=== PATIENT | female | born 1965 | race Caucasian/White ===

== ENCOUNTER 2017-05-29 20:31 | Emergency (ER) | payer OTHER ==
[~2017-05-29] VITALS: Ht 157.5 cm; Wt 99.1 kg
[2017-05-29 20:42] VITALS: TEMP 36.8; Ht 157.5 cm; Wt 99.1 kg
[2017-05-29] MEDS ORDERED: ONDANSETRON INJ 2 MG/ML 2 ML VIAL IV STA (20:56)
[2017-05-29] MEDS ORDERED: MoRPHine SULFATE 10 MG/ML CARP/VIAL IV STA (20:56)
[2017-05-29] MEDS ORDERED: GI COCKTAIL PO STA (20:56)
[2017-05-29] MEDS ORDERED: FAMOTIDINE 20 MG TAB PO ONE (21:00)
--- NOTE | 2017-05-29 21:05 | EMERGENCY ROOM VISIT NOTE ---
History Report prepared by Sylwia: Mei Alaniz Under the Supervision of: Dr. Oseas Paris M.D. 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 She rates her pain as a 10/10 in severity. Positive vomiting, hematemesis. Negative pain or swelling in her legs. Her last BM was this morning and normal. She reports she was treated for her pain at a hospital in [place], [place], recently, and was diagnosed with H- Pylori. She was placed 3 different antibiotics, which she is still taking. Her PCP is Dr. Solorzano at [facility] [address] in [place]. The patient is a current smoker. 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 A total of ten systems were reviewed and were otherwise negative. Past Medical & Surgical Medical Problems: (1) Asthma (2) Helicobacter pylori (H. pylori) (3) Kidney stones Family History Cancer Diabetes mellitus Kidney disease Lung disease Social History Smoking Status: Current Every Day Smoker Alcohol Use: occasionally Drug Use: none Marital Status: in relationship Housing Status: lives with family Occupation Status: employed Current/Historical Medications Scheduled Esomeprazole Magnesium (Nexium), 1 CAP PO DAILY Levofloxacin (Levaquin), 500 MG PO DAILY Metronidazole (Flagyl), 500 MG PO TID Pantoprazole (Protonix), 40 MG PO DAILY Sucralfate (Sucralfate), 1 GM PO BID Scheduled PRN Oxycodone Immediate Rel Tab (Roxicodone Ir), 5 MG PO Q6H PRN for Pain Oxycodone/Acetaminophen 5MG/325MG (Percocet 5MG/325MG), 1 TABLET PO Q6H PRN for Pain Allergies Coded Allergies: Ciprofloxacin (Verified Allergy, Severe, ANAPHYLAXIS, 05/29/17) Iodinated Diagnostic Agents (Verified Allergy, Severe, HIVES-BLISTERS IN MOUTH, 05/29/17) Morphine (Verified Allergy, Severe, ANAPHYLAXIS, 05/29/17) Naproxen (Verified Allergy, Severe, HIVES-BLISTERS IN MOUTH, 05/29/17) Penicillins (Verified Allergy, Severe, HIVES-BLISTERS IN MOUTH, 05/29/17) Sulfa Antibiotics (Verified Allergy, Severe, HIVES-BLISTERS IN MOUTH, 06/04) Sulfamethoxazole w/Trimethoprim (Verified Allergy, Severe, HIVES, 05/29/17 ) Physical Exam Vital Signs Date Time Temp Pulse Resp B/P (MAP) Pulse Ox O2 Delivery O2 Flow Rate FiO2 05/29/17 23:15 75 22 98 05/29/17 23:01 125/73 05/29/17 23:00 74 11 98 05/29/17 22:51 69 16 123/69 97 Room Air 05/29/17 21:50 87 05/29/17 21:25 87 05/29/17 20:42 36.8 97 18 155/127 98 Room Air Physical Exam GENERAL: Awake, alert, uncomfortable-appearing, NAD HENT: Normocephalic, atraumatic. EYES: Normal conjunctiva. Sclera non-icteric. NECK: Supple. No nuchal rigidity. FROM. RESPIRATORY: CTAB, no rhonchi, wheezing, crackles CARDIAC: RRR, no MRG ABDOMEN: Soft, some LUQ epigastric and RUQ tenderness to palpation, no lower abdominal tenderness. BS+ MSK: No chest wall TTP, no LE edema NEURO: GCS 15, CN 2-12 intact, moves all 4s on command SKIN: No rash or jaundice noted. Medical Decision & Procedures ER Provider Diagnostic Interpretation: Radiology results as stated below per my review and radiologist interpretation: ABD/PELVIS IV CONTRAST ONLY CLINICAL HISTORY: 51 years-old Female presenting with upper ab pain. TECHNIQUE: Multidetector CT of the abdomen and pelvis was performed after the administration of intravenous contrast. IV contrast: 94 mL of Optiray 320. A dose lowering technique was used consistent with the principles of ALARA (as low as reasonably achievable). COMPARISON: None. CT DOSE (mGy.cm): The estimated cumulative dose is 920.82 mGy.cm. FINDINGS: Seafood Packer topogram: Unremarkable. Lung bases: Minimal dependent changes likely atelectasis. Mosaic attenuation could suggest small airways disease. Normal heart size. Calcification in the region of the papillary muscles noted. No pericardial or pleural effusion. Liver: Normal morphology. Hepatic steatosis. No focal lesion. Patent hepatic vasculature. Biliary: No intrahepatic or extrahepatic biliary ductal dilatation. Normal gallbladder. Pancreas: Calcified focus in the uncinate, possibly peripherally calcified cyst. Parenchyma otherwise normal. Spleen: Normal. Adrenal glands: Normal. Kidneys and ureters: Normal. No hydronephrosis. Bladder: Normal. Pelvic organs: Uterus and ovaries normal. Bowel: Appendix absent. No bowel obstruction. Peritoneal cavity: No free fluid or intraperitoneal gas. Lymph nodes: No enlarged lymph nodes in the abdomen or pelvis. Vasculature: Atherosclerosis of the normal caliber abdominal aorta. IVC patent. Abdominal wall: Small fat-containing containing umbilical hernia. Musculoskeletal: Degenerative changes of the spine. IMPRESSION: 1. Hepatic steatosis. Correlate with liver function enzymes to exclude steatohepatitis as a cause for abdominal pain. Electronically signed by: Fernando Wylie M.D. 05/29/2017 10:48 PM CHEST ONE VIEW PORTABLE CLINICAL HISTORY: 51 years-old Female presenting with ABDOMINAL PAIN/GI. TECHNIQUE: Portable upright AP view of the chest was obtained. COMPARISON: None. FINDINGS: Atherosclerosis of aortic arch. Cardiac silhouette normal in size. Bandlike opacity in the left midlung. Otherwise lungs and pleural spaces clear. Osseous structures normal. Upper abdomen normal. IMPRESSION: 1. Minimal left mid lung atelectasis or scarring. Otherwise no acute cardiopulmonary disease. Electronically signed by: Fernando Wylie M.D. 05/29/2017 9:19 PM Laboratory Results 05/29/17 21:37 Red Blood Count 4.62, Mean Corpuscular Volume 87.0, Mean Corpuscular Hemoglobin 29.9, Mean Corpuscular Hemoglobin Concent 34.3, Mean Platelet Volume 9.4, Neutrophils (%) (Auto) 58.4, Lymphocytes (%) (Auto) 32.0, Monocytes (%) (Auto) 4.7, Eosinophils (%) (Auto) 4.0, Basophils (%) (Auto) 0.7, Neutrophils # (Auto) 5.53, Lymphocytes # (Auto) 3.03, Monocytes # (Auto) 0.45, Eosinophils # (Auto) 0.38, Basophils # (Auto) 0.07 Test 05/29/17 21:37 05/29/17 21:45 05/29/17 23:08 White Blood Count 9.48 K/uL (4.8-10.8) Red Blood Count 4.62 M/uL (4.2-5.4) Hemoglobin 13.8 g/dL (12.0-16.0) Hematocrit 40.2 % (37-47) Mean Corpuscular Volume 87.0 fL (80-100) Mean Corpuscular Hemoglobin 29.9 pg (25-34) Mean Corpuscular Hemoglobin Concent 34.3 g/dl (32-36) Platelet Count 369 K/uL (130-400) Mean Platelet Volume 9.4 fL (7.4-10.4) Neutrophils (%) (Auto) 58.4 % Lymphocytes (%) (Auto) 32.0 % Monocytes (%) (Auto) 4.7 % Eosinophils (%) (Auto) 4.0 % Basophils (%) (Auto) 0.7 % Neutrophils # (Auto) 5.53 K/uL (1.4-6.5) Lymphocytes # (Auto) 3.03 K/uL (1.2-3.4) Monocytes # (Auto) 0.45 K/uL (0.11-0.59) Eosinophils # (Auto) 0.38 K/uL (0-0.5) Basophils # (Auto) 0.07 K/uL (0-0.2) RDW Standard Deviation 42.8 fL (36.4-46.3) RDW Coefficient of Variation 13.4 % (11.5-14.5) Immature Granulocyte % (Auto) 0.2 % Immature Granulocyte # (Auto) 0.02 K/uL (0.00-0.02) Urine Color YELLOW Urine Appearance CLEAR (CLEAR) Urine pH 5.0 (4.5-7.5) Urine Specific [place] 1.022 (1.000-1.030) Urine Protein NEG (NEG) Urine Glucose (UA) NEG (NEG) Urine Ketones NEG (NEG) Urine Occult Blood 3+ (NEG) Urine Nitrite NEG (NEG) Urine Bilirubin NEG (NEG) Urine Urobilinogen NEG (NEG) Urine Leukocyte Esterase SMALL (NEG) Urine WBC (Auto) 1-5 /hpf (0-5) Urine RBC (Auto) >30 /hpf (0-4) Urine Hyaline Casts (Auto) 1-5 /lpf (0-5) Urine Epithelial Cells (Auto) 20-30 /lpf (0-5) Urine Bacteria (Auto) NEG (NEG) Total Bilirubin 0.2 mg/dl (0.2-1) Alanine Aminotransferase (ALT/SGPT) 17 U/L (12-78) Alkaline Phosphatase 91 U/L (45-117) Total Protein 7.6 gm/dl (6.4-8.2) Albumin 3.2 gm/dl (3.4-5.0) Lipase 109 U/L (73-393) Bedside Hemoglobin 13.6 g/dl (12.0-16.0) Bedside Hematocrit 40 % (37-47) Bedside Sodium 139 mEq/L (135-144) Bedside Potassium 4.1 mEq/L (3.3-5.0) Bedside Chloride 104 mEq/L (101-112) Bedside Total CO2 23 mEq/l (24-31) Anion Gap 16.0 mmol/L (16-25) Bedside Blood Urea Nitrogen 6 mg/dl (7-18) Bedside Creatinine 0.8 mg/dl (0.6-1.3) Bedside Glucose (other) 142 mg/dl (70-99) Bedside Ionized Calcium (Natasha) 1.25 mmol/l (1.12-1.32) Direct Bilirubin < 0.1 mg/dl (0-0.2) Aspartate Amino Transf (AST/SGOT) 10 U/L (15-37) Laboratory results reviewed by me Medications Administered Medications (Trade) Dose Ordered Sig/[facility] Route Start Time Stop Time Status Last Admin Dose Admin Ondansetron HCl (Zofran Inj) 4 mg NOW STAT IV 05/29/17 20:56 05/29/17 20:59 DC 05/29/17 22:12 4 MG Miscellaneous Medication (Gi Cocktail) 24 ml ONE STAT PO 05/29/17 20:56 05/29/17 20:59 DC 05/29/17 20:56 24 ML Famotidine (Pepcid Tab) 20 mg NOW ONCE PO 05/29/17 21:00 05/29/17 21:01 DC 05/29/17 22:03 20 MG Diphenhydramine HCl (Benadryl Inj) 25 mg NOW STAT IV 05/29/17 21:51 05/29/17 21:52 DC 05/29/17 22:10 25 MG Methylprednisolone Sodium Succinate (Solu-Medrol IV) 125 mg NOW STAT IV 05/29/17 21:51 05/29/17 21:52 DC 05/29/17 22:07 125 MG Hydromorphone HCl (Dilaudid Inj) 0.5 mg NOW STAT IV 05/29/17 21:51 05/29/17 21:52 DC 05/29/17 22:14 0.5 MG Al Hydroxide/Mg Hydroxide (Maalox Susp) 30 ml STK-MED ONCE .ROUTE 05/29/17 21:59 05/29/17 22:00 DC 05/29/17 22:03 30 ML Lidocaine HCl (Viscous Lidocaine 2% Soln) 20 ml STK-MED ONCE .ROUTE 05/29/17 21:59 05/29/17 22:00 DC 05/29/17 22:03 20 ML Ondansetron HCl (Zofran Odt) 4 mg NOW STAT PO 05/29/17 23:02 05/29/17 23:03 DC 05/29/17 23:08 4 MG ECG Indication: abdominal pain Rate (beats per minute): 78 Rhythm: normal sinus Findings: no ectopy, other (normal axis, Q wave and T wave inversions in lead 3 , but not in contiguous leads) ED Course 2048: The patient was evaluated in room A4B. A complete history and physical exam was performed. 2199: I reevaluated the patient. She is resting comfortably and I clarified some of her medication allergies. 2310: I reevaluated the patient. I had a long discussion with her about her results and discharge instructions and she verbalized complete understanding and agreement. 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 Triage Nursing notes reviewed. The patient's presentation and history were concerning for abdominal pain. Differential diagnosis: Etiologies such as appendicitis, diverticulitis, PUD, biliary pathology, UTI, pancreatitis, obstruction, mesenteric ischemia, aortic pathology, infections, inflammatory bowel disease, renal colic, as well as others were entertained. Patient was seen and evaluated the bedside. Patient states she was recently admitted to the hospital where she had an EGD completed. Sounds as though she had a biopsy that was obtained as she was diagnosed with H. pylori and started on antibiotic therapy. Patient states she has continued to have persistent pain and is pending a HIDA scan as an outpatient. Patient does have upper abdominal pain. Patient did have blood work, EKG, urinalysis, CT the abdomen pelvis completed along with supportive care. Patient was given pain medication as well as antiemetics. Patient did have blood work that came back that showed that she did not have an elevated white count. Patient did not have elevated bilirubin. Patient not have elevation in her LFTs or lipase. Patient had negative CT scan w/ exception of ?hepatosteatosis. I discussed these findings with the patient stated the patient should avoid things like spicy or citrus fruits. Patient should continue to try antibiotic therapy and should try to take this with food. Patient was told to slowly advance her diet in the meantime she should try liquids were clear and avoid things like caffeine, spicy , citrus, peppermint, chocolate. Patient was also told to eat smaller meals. Patient was told that H pylori can cause ulcers. Patient was also counseled on smoking cessation. Patient was told that she should keep her follow-up appointment on with her gastroenterology follow-up visit will discuss additional treatment and plan. Patient was amenable to this. Patient was deemed safe for outpatient follow-up and treatment. Patient was given strict follow-up, discharge, and return precautions. All questions were answered. Patient was deemed suitable for outpatient follow-up at this time. Patient agreed with the plan of care and was safely discharged home. Medication Reconcilliation Current Medication List: was personally reviewed by me Blood Pressure Screening Patient's blood pressure: Elevated blood pressure Blood pressure disposition: Referred to PCP Impression Primary Impression: Hepatic steatosis Additional Impressions: H. pylori infection Encounter for smoking cessation counseling Scribe Attestation The scribe's documentation has been prepared under my direction and personally reviewed by me in its entirety. I confirm that the note above accurately reflects all work, treatment, procedures, and medical decision making performed by me. Departure Information Dispostion Home / Self-Care Prescriptions Oxycodone Immediate Rel Tab (ROXICODONE IR) 5 Mg Tab 5 MG PO Q6H Y for Pain, #12 TAB Prov: Oseas Paris M.D. 05/29/17 Esomeprazole Magnesium (NEXIUM) 40 Mg Cap 1 CAP PO DAILY for 30 Days, #30 CAP 5 Refills Prov: Oseas Paris M.D. 05/29/17 Sucralfate (SUCRALFATE) 1 Gm Tab 1 GM PO BID for 28 Days, #56 TAB Prov: Oseas Paris M.D. 05/29/17 Patient Instructions ED Peptic Ulcer H Pylori Infec, H Pylori and Ulcers, My [facility], Tips Control Acid Reflux Additional Instructions Please return to the emergency department if you have worsening or recurrent symptoms not amenable to at-home treatment. Please call for a follow-up appointment with her primary care physician. Please take your medications as prescribed. If you have other concerns and/or complaints please feel free to also call your primary care physician's office or return the ED for further evaluation, management, and treatment. You were found to have an elevated blood pressure today (>120 sytolic or >90 diastolic). Per medicare guidelines, you need to follow up with this blood pressure screening with your Primary Care Physician (PCP). For a new PCP call [phone]. You received narcotic or benzodiazepene medication while in the emergency room today. This is an addictive medication that may cause drowziness as well as constipation. Do not drive, operate heavy machinery, or drink alcohol under the influence of this medication. Avoid NSAIDs like ibuprofen/aspirin/advil. You may take tylenol 650 mg every 6 hours as needed for pain. Please avoid spicy, citrus, chocolate, peppermint. Consider smaller meals. Please take the medications as prescribed and attempt OTC remedies before using narcotic medications. Take your medications as prescribed. If taking an antibiotic consider taking a probiotic and/or eating yogurt, but at the least, please take with food as it can cause upset stomach. If culture results are not available at discharge, if they are positive for concern of infection, you will be informed of the results as soon as they are available. If you were seen between 11pm and 7AM all radiology reads will be re-read by our in house staff. If any major discrepancies are discovered, you will be notified. You have been examined and treated today on an emergency basis only. This is not a substitute for, or an effort to provide, complete comprehensive medical care. It is impossible to recognize and treat all injuries or illnesses in a single emergency department visit. It is therefore important that you follow up closely with [facility], your PCP, and/or your specialist(s). Call as soon as possible for an appointment. Thank you for your time and consideration. I look forward to speaking with you again soon. Please don't hesitate to call us if you have any questions. Problem Qualifiers
[2017-05-29] MEDS ORDERED: PATIENT'S ALLERGY INFO NEEDS ENTERED STA (21:06)
[2017-05-29] MEDS ORDERED: OPTIRAY 320 IV PRN (21:15)
--- NOTE | 2017-05-29 21:20 | DIAGNOSTIC IMAGING REPORT ---
CHEST ONE VIEW PORTABLE CLINICAL HISTORY: 51 years-old Female presenting with ABDOMINAL PAIN/GI. TECHNIQUE: Portable upright AP view of the chest was obtained. COMPARISON: None. FINDINGS: Atherosclerosis of aortic arch. Cardiac silhouette normal in size. Bandlike opacity in the left midlung. Otherwise lungs and pleural spaces clear. Osseous structures normal. Upper abdomen normal. IMPRESSION: 1. Minimal left mid lung atelectasis or scarring. Otherwise no acute cardiopulmonary disease. Electronically signed by: Fernando Wylie M.D. 05/29/2017 9:19 PM Dictated Date/Time: 05/29/2017 9:18 PM
[2017-05-29] MEDS ORDERED: PANT40TA PO (21:46)
[2017-05-29] MEDS ORDERED: OXYC-57 PO (21:46)
[2017-05-29] MEDS ORDERED: LEVO1TAB33 PO (21:46)
[2017-05-29] MEDS ORDERED: METR-163 PO (21:46)
[2017-05-29] MEDS ORDERED: DiphenhydrAMINE HCL 50 MG/ML VIAL IV STA (21:51)
[2017-05-29] MEDS ORDERED: METHYLPREDNISOLONE 125 MG VIAL IV STA (21:51)
[2017-05-29] MEDS ORDERED: HYDROmorphone INJ 0.5 MG/0.5 ML SYR IV STA (21:51)
[2017-05-29 21:53] LABS: BASO % 0.7 %; BASO ABS # 0.07 K/uL (0-0.2); COMPLETE YES; HEMATOCRIT 40.2 % (37-47); IG% 0.2 %; LYMPH ABS # 3.03 K/uL (1.2-3.4); MEAN CORPUSCULAR HEMOGLOBIN 29.9 pg (25-34); MEAN CORPUSCULAR HGB CONC 34.3 g/dl (32-36); MEAN PLATELET VOLUME 9.4 fL (7.4-10.4); MONO % 4.7 %; NEUT % 58.4 %; PLATELET COUNT 369 K/uL (130-400); RED BLOOD COUNT 4.62 M/uL (4.2-5.4); WHITE BLOOD COUNT 9.48 K/uL (4.8-10.8)
[2017-05-29 21:59] LABS: ISTAT CREATININE 0.8 mg/dl (0.6-1.3); ISTAT HEMOGLOBIN 13.6 g/dl (12.0-16.0); ISTAT IONIZED CALCIUM 1.25 mmol/l (1.12-1.32)
[2017-05-29] MEDS ORDERED: ALUMINUM/MAGNESIUM SUSP 30 ML UDC ONE (21:59)
[2017-05-29] MEDS ORDERED: LIDOCAINE HCL 2% VISC SOLN 20 ML UDC ONE (21:59)
[2017-05-29 22:02] LABS: URINE APPEARANCE CLEAR (CLEAR); URINE BILIRUBIN NEG (NEG); URINE COLOR YELLOW; URINE EPITHELIAL CELL AUTO 20-30 /lpf (0-5); URINE NITRITE NEG (NEG); URINE SPECIFIC GRAVITY 1.022 (1.000-1.030); UROBILINOGEN NEG (NEG); ZZUR CULT IF INDIC CLEAN CATCH NO
[2017-05-29 22:03] LABS: MANUAL MICROSCOPIC REQUIRED? NO; REVIEW REQ? NO
[2017-05-29 22:25] LABS: ALKALINE PHOSPHATASE 91 U/L (45-117); ALT/SGPT 17 U/L (12-78)
--- NOTE | 2017-05-29 22:49 | DIAGNOSTIC IMAGING REPORT ---
ABD/PELVIS IV CONTRAST ONLY CLINICAL HISTORY: 51 years-old Female presenting with upper ab pain. TECHNIQUE: Multidetector CT of the abdomen and pelvis was performed after the administration of intravenous contrast. IV contrast: 94 mL of Optiray 320. A dose lowering technique was used consistent with the principles of ALARA (as low as reasonably achievable). COMPARISON: None. CT DOSE (mGy.cm): The estimated cumulative dose is 920.82 mGy.cm. FINDINGS: Quality Assurance Monitor Final topogram: Unremarkable. Lung bases: Minimal dependent changes likely atelectasis. Mosaic attenuation could suggest small airways disease. Normal heart size. Calcification in the region of the papillary muscles noted. No pericardial or pleural effusion. Liver: Normal morphology. Hepatic steatosis. No focal lesion. Patent hepatic vasculature. Biliary: No intrahepatic or extrahepatic biliary ductal dilatation. Normal gallbladder. Pancreas: Calcified focus in the uncinate, possibly peripherally calcified cyst. Parenchyma otherwise normal. Spleen: Normal. Adrenal glands: Normal. Kidneys and ureters: Normal. No hydronephrosis. Bladder: Normal. Pelvic organs: Uterus and ovaries normal. Bowel: Appendix absent. No bowel obstruction. Peritoneal cavity: No free fluid or intraperitoneal gas. Lymph nodes: No enlarged lymph nodes in the abdomen or pelvis. Vasculature: Atherosclerosis of the normal caliber abdominal aorta. IVC patent. Abdominal wall: Small fat-containing containing umbilical hernia. Musculoskeletal: Degenerative changes of the spine. IMPRESSION: 1. Hepatic steatosis. Correlate with liver function enzymes to exclude steatohepatitis as a cause for abdominal pain. Electronically signed by: Fernando Wylie M.D. 05/29/2017 10:48 PM Dictated Date/Time: 05/29/2017 10:41 PM
[2017-05-29] MEDS ORDERED: ONDANSETRON 4MG OD TAB PO STA (23:02)
[2017-05-29 23:39] LABS: AST/SGOT 10 U/L (15-37)
[2017-05-29] MEDS ORDERED: SUCR1TAB PO (23:41)
[2017-05-29] MEDS ORDERED: NXM/40 PO (23:41)
[2017-05-29] MEDS ORDERED: OXYC1TAB3 PO (23:43)
[2017-05-30] VITALS: BP 137/71
[2017-05-30 00:05] VITALS: PULSE 64; O2SAT 97
== END 2017-05-30 00:07 | disposition home or self-care (01) ==
LOC: C.EDB 20:33 → C.EDA 05-30 00:07
DX: K76.0 Fatty (change of) liver, not elsewhere classified (principal); A04.8 Other specified bacterial intestinal infections; Z71.6 Tobacco abuse counseling; J45.909 Unspecified asthma, uncomplicated; F17.200 Nicotine dependence, unspecified, uncomplicated; Z87.442 Personal history of urinary calculi; Z83.3 Family history of diabetes mellitus

== ENCOUNTER 2017-06-28 12:31 | Emergency (ER) | payer OTHER ==
[~2017-06-28] VITALS: Ht 157.5 cm; Wt 98.0 kg
[~2017-06-28 12:31] MED LIST: LEVO1TAB33 PO; METR-163 PO; NXM/40 PO; OXYC-57 PO; OXYC1TAB3 PO; PANT40TA PO
[2017-06-28 12:38] VITALS: TEMP 36.7; Ht 157.5 cm; Wt 98.0 kg
[2017-06-28] MEDS ORDERED: FAMOTIDINE 20 MG TAB PO STA (13:15)
[2017-06-28] MEDS ORDERED: GI COCKTAIL PO STA (13:15)
[2017-06-28] MEDS ORDERED: DiphenhydrAMINE HCL 50 MG/ML VIAL IV STA (13:15)
[2017-06-28] MEDS ORDERED: METHYLPREDNISOLONE 125 MG VIAL IV STA (13:15)
[2017-06-28] MEDS ORDERED: FAMOTIDINE 20MG/5ML IV PUSH IV STA (13:15)
[2017-06-28] MEDS ORDERED: SUCRALFATE 1 GM TAB PO STA (13:15)
[2017-06-28] MEDS ORDERED: TRAZ100T29 PO (13:24)
[2017-06-28] MEDS ORDERED: NXM/40 PO (13:24)
--- NOTE | 2017-06-28 13:26 | EMERGENCY ROOM VISIT NOTE ---
History Report prepared by Sylwia: Nicole Sharpe Under the Supervision of: Dr. Niko Pope M.D. First contact with patient: 12:51 Chief Complaint: ABDOMINAL PAIN Stated Complaint: SEVERE STOMACH PAIN Nursing Triage Summary: continued pain after surgery to remove gallbladder. History of Present Illness The patient is a 51 year old female who presents to the Emergency Room with complaints of constant abdominal pain beginning about 2 months ago. The patient states she was admitted to [facility] for IV antibiotics about two months ago. The patient had her gallbladder removed on 06/21/17. The patient states she felt fine most of last week but started to have worsening abdominal burning, nausea and vomiting starting two days ago. She states her GI physician told her to come into the ED. The patient also reports blood in stool, increased pain with eating, and weight loss. Source of History: patient Onset: 2 months ago Position: abdomen Timing: constant Associated Symptoms: + nausea, + vomiting, + abdominal pain Note: The patient also reports blood in stool, increased pain with eating, and weight loss. Review of Systems See HPI for pertinent positives & negatives. A total of 10 systems reviewed and were otherwise negative. Past Medical & Surgical Medical Problems: (1) Asthma (2) Helicobacter pylori (H. pylori) (3) Kidney stones Family History Cancer Diabetes mellitus Kidney disease Lung disease Social History Smoking Status: Current Every Day Smoker Alcohol Use: occasionally Drug Use: none Marital Status: in relationship Housing Status: lives with family Occupation Status: employed Current/Historical Medications Scheduled Docusate Sodium (Colace), 1 CAP PO BID Esomeprazole Magnesium (Nexium), 40 MG PO QPM Nicotine (Nicoderm Cq 21MG Patch), 1 PATCH TD DAILY Ondasetron Odt (Zofran Odt), 4 MG SL Q6H Sennosides (Senokot), 8.6 MG PO HS Trazodone Hcl (Trazodone), 150 MG PO QPM Scheduled PRN Oxycodone/Acetaminophen 5MG/325MG (Percocet 5MG/325MG), 1-2 TAB PO Q4H PRN for Pain Allergies Coded Allergies: Ciprofloxacin (Verified Allergy, Severe, ANAPHYLAXIS, 06/28/17) Iodinated Diagnostic Agents (Verified Allergy, Severe, HIVES-BLISTERS IN MOUTH, 06/28/17) Ketorolac Tromethamine (Unverified Allergy, Severe, HIVES,TONGUE SWELLING , 06/28/17) Morphine (Verified Allergy, Severe, ANAPHYLAXIS, 06/28/17) Naproxen (Verified Allergy, Severe, HIVES-BLISTERS IN MOUTH, 06/28/17) Penicillins (Verified Allergy, Severe, HIVES-BLISTERS IN MOUTH, 06/28/17) Sulfa Antibiotics (Verified Allergy, Severe, HIVES-BLISTERS IN MOUTH, 06/04) Sulfamethoxazole w/Trimethoprim (Verified Allergy, Severe, HIVES, 06/28/17 ) Tramadol (Unverified Allergy, Severe, HIVES,TONGUE SWELLING, 06/28/17) Physical Exam Vital Signs Date Time Temp Pulse Resp B/P (MAP) Pulse Ox O2 Delivery O2 Flow Rate FiO2 06/28/17 16:27 66 20 173/86 97 Room Air 06/28/17 15:10 65 20 153/79 98 Room Air 06/28/17 14:10 73 16 162/87 99 06/28/17 12:38 36.7 85 20 171/83 97 Room Air Physical Exam GENERAL: Patient is a healthy-appearing well-nourished female HEAD: Normocephalic atraumatic EYES: Ocular movements intact pupils equal and react to light OROPHARYNX mucous membranes are moist no exudates present no erythema or edema present NECK: Supple no nuchal rigidity CHEST: Good equal expansion LUNGS: Clear and equal to auscultation CARDIAC: Normal S1 and S2 ABDOMEN: Surgical sites that are healing well. Soft nontender no guarding BACK: No CVA tenderness EXTREMITIES: No pain upon palpation normal muscle strength in all groups no clubbing cyanosis or edema NEURO: Patient is following commands and answering questions appropriately. Alert and oriented x3 Cranial Nerves 2-12 grossly intact Medical Decision & Procedures ER Provider Diagnostic Interpretation: Radiology results as stated below per my review and radiologist interpretation: ABD/PELVIS IV CONTRAST ONLY FINDINGS: Celebrity Manager topogram: Cholecystectomy clips. Lung bases: Mosaic attenuation at the lung bases could relate to the phase of respiration or indicate small airways disease. Minimal dependent atelectasis. Normal heart size. No pericardial or pleural effusion. Liver: Normal morphology. No liver lesion. Minimal infiltration in the gallbladder fossa likely expected postsurgical change. No sizable perihepatic or subcapsular fluid collection. Patent hepatic vasculature. Biliary: No intrahepatic or extrahepatic biliary ductal dilatation. Gallbladder surgically absent. Pancreas: Calcified focus in the pancreatic head/uncinate, unchanged from prior and indeterminate. In the absence of prior intervention, this may represent a peripherally calcified mucinous cystic lesion. No pancreatic ductal dilatation. This is unchanged from prior. Spleen: Normal. Adrenal glands: Normal. Kidneys and ureters: Normal. No hydronephrosis. Bladder: Normal. Pelvic organs: Uterus and ovaries normal for a premenopausal setting. The right ovary contains a dominant follicle. Bowel: Normal. No bowel obstruction. Peritoneal cavity: No free fluid or intraperitoneal gas. Lymph nodes: No enlarged lymph nodes in the abdomen or pelvis. Vasculature: Atherosclerosis of the normal caliber abdominal aorta. IVC patent. Abdominal wall: Postsurgical changes in the midline abdomen in the periumbilical region and right upper quadrant from recent cholecystectomy. Musculoskeletal: Normal. IMPRESSION: 1. Expected postsurgical appearance status post cholecystectomy. No convincing evidence of a biloma or other postsurgical complication. 2. Indeterminate peripherally calcified lesion in the pancreatic head/uncinate. This may represent a mucinous cystic lesion along other potential etiologies. Electronically signed by: Fernando Wylie M.D. Laboratory Results 06/28/17 14:00 Red Blood Count 4.46, Mean Corpuscular Volume 86.8, Mean Corpuscular Hemoglobin 29.8, Mean Corpuscular Hemoglobin Concent 34.4, Mean Platelet Volume 9.5, Neutrophils (%) (Auto) 64.7, Lymphocytes (%) (Auto) 27.3, Monocytes (%) (Auto) 5.3, Eosinophils (%) (Auto) 1.9, Basophils (%) (Auto) 0.6, Neutrophils # (Auto) 6.64, Lymphocytes # (Auto) 2.80, Monocytes # (Auto) 0.54, Eosinophils # (Auto) 0.20, Basophils # (Auto) 0.06 06/28/17 14:00 Test 06/28/17 14:00 06/28/17 14:10 06/28/17 15:00 White Blood Count 10.26 K/uL (4.8-10.8) Red Blood Count 4.46 M/uL (4.2-5.4) Hemoglobin 13.3 g/dL (12.0-16.0) Hematocrit 38.7 % (37-47) Mean Corpuscular Volume 86.8 fL (80-100) Mean Corpuscular Hemoglobin 29.8 pg (25-34) Mean Corpuscular Hemoglobin Concent 34.4 g/dl (32-36) Platelet Count 350 K/uL (130-400) Mean Platelet Volume 9.5 fL (7.4-10.4) Neutrophils (%) (Auto) 64.7 % Lymphocytes (%) (Auto) 27.3 % Monocytes (%) (Auto) 5.3 % Eosinophils (%) (Auto) 1.9 % Basophils (%) (Auto) 0.6 % Neutrophils # (Auto) 6.64 K/uL (1.4-6.5) Lymphocytes # (Auto) 2.80 K/uL (1.2-3.4) Monocytes # (Auto) 0.54 K/uL (0.11-0.59) Eosinophils # (Auto) 0.20 K/uL (0-0.5) Basophils # (Auto) 0.06 K/uL (0-0.2) RDW Standard Deviation 44.1 fL (36.4-46.3) RDW Coefficient of Variation 13.8 % (11.5-14.5) Immature Granulocyte % (Auto) 0.2 % Immature Granulocyte # (Auto) 0.02 K/uL (0.00-0.02) Est Creatinine Clear Calc Drug Dose 101.1 ml/min Estimated GFR () 112.4 Estimated GFR (Non- 97.0 BUN/Creatinine Ratio 6.7 (10-20) Calcium Level 9.1 mg/dl (8.5-10.1) Total Bilirubin 0.2 mg/dl (0.2-1) Direct Bilirubin < 0.1 mg/dl (0-0.2) Aspartate Amino Transf (AST/SGOT) 12 U/L (15-37) Alanine Aminotransferase (ALT/SGPT) 19 U/L (12-78) Alkaline Phosphatase 78 U/L (45-117) Total Protein 7.5 gm/dl (6.4-8.2) Albumin 3.2 gm/dl (3.4-5.0) Lipase 127 U/L (73-393) Bedside Hemoglobin 11.9 g/dl (12.0-16.0) Bedside Hematocrit 35 % (37-47) Bedside Sodium 139 mEq/L (135-144) Bedside Potassium 3.9 mEq/L (3.3-5.0) Bedside Chloride 103 mEq/L (101-112) Bedside Total CO2 25 mEq/l (24-31) Anion Gap 16.0 mmol/L (16-25) Bedside Blood Urea Nitrogen 3 mg/dl (7-18) Bedside Creatinine 0.7 mg/dl (0.6-1.3) Bedside Glucose (other) 102 mg/dl (70-99) Bedside Ionized Calcium (Natasha) 1.21 mmol/l (1.12-1.32) Urine Color YELLOW Urine Appearance CLEAR (CLEAR) Urine pH 5.0 (4.5-7.5) Urine Specific Anderson 1.025 (1.000-1.030) Urine Protein NEG (NEG) Urine Glucose (UA) 1+ (NEG) Urine Ketones NEG (NEG) Urine Occult Blood 1+ (NEG) Urine Nitrite NEG (NEG) Urine Bilirubin NEG (NEG) Urine Urobilinogen NEG (NEG) Urine Leukocyte Esterase NEG (NEG) Urine WBC (Auto) 1-5 /hpf (0-5) Urine RBC (Auto) 5-10 /hpf (0-4) Urine Hyaline Casts (Auto) 1-5 /lpf (0-5) Urine Epithelial Cells (Auto) >30 /lpf (0-5) Urine Bacteria (Auto) NEG (NEG) Labs reviewed by ED physician. Medications Administered Medications (Trade) Dose Ordered Sig/Renetta Route Start Time Stop Time Status Last Admin Dose Admin Sucralfate (Carafate Tab) 1 gm NOW STAT PO 06/28/17 13:15 06/28/17 13:19 DC 06/28/17 14:02 1 GM Methylprednisolone Sodium Succinate (Solu-Medrol IV) 60 mg NOW STAT IV 06/28/17 13:15 06/28/17 13:19 DC 06/28/17 14:02 60 MG Diphenhydramine HCl (Benadryl Inj) 50 mg NOW STAT IV 06/28/17 13:15 06/28/17 13:19 DC 06/28/17 14:02 50 MG Famotidine (Pepcid 20mg Iv Push) 20 mg ONE STAT IV 06/28/17 13:15 06/28/17 13:19 DC 06/28/17 14:03 20 MG Al Hydroxide/Mg Hydroxide (Maalox Susp) 30 ml STK-MED ONCE .ROUTE 12/11/17 13:57 06/28/17 13:58 DC 06/28/17 14:03 30 ML Lidocaine HCl (Viscous Lidocaine 2% Soln) 20 ml STK-MED ONCE .ROUTE 06/28/17 13:57 06/28/17 13:58 DC 06/28/17 14:03 20 ML Hydromorphone HCl (Dilaudid Inj) 1 mg NOW STAT IV 06/28/17 16:03 06/28/17 16:05 DC 06/28/17 16:21 1 MG Ondansetron HCl (Zofran Inj) 4 mg NOW STAT IV 06/28/17 16:03 06/28/17 16:05 DC 06/28/17 16:21 4 MG Nicotine (Nicoderm Cq 21MG Patch) 1 patch NOW STAT TD 06/28/17 16:10 06/28/17 16:11 DC 06/28/17 16:21 1 PATCH ED Course 1310: Past medical records reviewed. The patient was evaluated in room A2. A complete history and physical examination was performed. 1315: Ordered Famotidine 20 mg IV, Benadryl Inj 50 mg Iv, Solu-Medrol IV 60 mg IV, Carafate Tab 1 gm PO, Pepcid Tab 20 mg PO, GI Cocktail 24 ml PO. 1320: medical practice manager talked to the patient's GI doctor who states he wrote the patient a prescription for H. pylori and did not refer the patient to the ED. 1357: Ordered Lidocaine HCl .ROUTE, Maalox Susp 30 ml .ROUTE. 1603: Orderer Zofran Inj 4 mg IV, Dilaudid Inj 1 mg IV. 1610: Ordered Nicotine 1 patch TD. 1630: Upon reexamination the patient is resting comfortably. I discussed results and treatment plan with the patient. She verbalizes agreement and understanding. The patient is ready for discharge. Medical Decision Differential diagnosis: Etiologies such as appendicitis, diverticulitis, PUD, biliary pathology, UTI, pancreatitis, obstruction, mesenteric ischemia, aortic pathology, infections, inflammatory bowel disease, renal colic, as well as others were entertained. This is a 51-year-old female who presents emergency department complaining of epigastric pain. The patient is being worked up by her outpatient senior writer. She was given a GI cocktail Pepcid and Carafate in the emergency Department with improvement in her symptoms. Due to the recent gallbladder surgery the patient was sent for CAT scan of the abdomen pelvis however does not appear to be any free fluid and I do not see any acute process. In addition the patient does not have an elevation in her white blood count cell count has a normal red blood cell count as a normal liver kidney lipase profile. Serial abdominal examinations were performed on the patient in the emergency department and at no time did the patient exhibit a surgical abdomen. The patient was given 1 mg of Dilaudid as well as Zofran. Repeat examination revealed improvement patient's symptoms. I do feel that the patient as well as to be discharged home for follow-up with her primary care physician. She was given stool softeners as well as pain medication Zofran. Medication Reconcilliation Current Medication List: was personally reviewed by me Blood Pressure Screening Patient's blood pressure: Elevated blood pressure Blood pressure disposition: Referred to PCP Impression Primary Impression: Epigastric pain Scribe Attestation The scribe's documentation has been prepared under my direction and personally reviewed by me in its entirety. I confirm that the note above accurately reflects all work, treatment, procedures, and medical decision making performed by me. Departure Information Dispostion Home / Self-Care Prescriptions Ondasetron Odt (ZOFRAN ODT) 4 Mg Tab 4 MG SL Q6H for Nausea, #6 TAB Prov: Niko Pope MD 06/28/17 Nicotine (NICODERM CQ 21MG PATCH) 21 Mg/24 Hr Dis 1 PATCH TD DAILY for 30 Days, #30 PATCH Prov: Niko Pope MD 06/28/17 Oxycodone/Acetaminophen 5MG/325MG (PERCOCET 5MG/325MG) Tab 1-2 TAB PO Q4H Y for Pain, #14 TAB Prov: Niko Pope MD 06/28/17 Docusate Sodium (COLACE) 100 Mg Cap 1 CAP PO BID for 30 Days, #30 CAP Prov: Niko Pope MD 06/28/17 Sennosides (SENOKOT) 8.6 Mg Tab 8.6 MG PO HS for 30 Days, #30 TAB Prov: Niko Pope MD 06/28/17 Referrals Anamaria Cody D.O. (PCP) Forms Call Back Authorization, HOME CARE DOCUMENTATION FORM, IMPORTANT VISIT INFORMATION Patient Instructions Diet Clear Liquid Dc, ED Epigastric Pain [facility], ED Smoking Cessation, [facility] Additional Instructions Clear liquid diet next 48 hours Take 5 ml Maalox before every meal and at bedtime You received narcotic or benzodiazepene medication while in the emergency room today. This is an addictive medication that may cause drowziness as well as constipation. Do not drive, operate heavy machinery, or drink alcohol under the influence of this medication. Take Percocet for breakthrough pain Radiographs and CTs will be reread by a radiologist in the morning. Culture results are usually available in approx 48 hours You have been examined and treated today on an emergency basis only. This is not a substitute for, or an effort to provide, complete comprehensive medical care. It is impossible to recognize and treat all injuries or illnesses in a single emergency department visit. It is therefore important that you follow up closely with Dr Cody. Call as soon as possible for an appointment. Thank you for your time and consideration. I look forward to speaking with you again soon. Please don't hesitate to call us if you have any questions.
[2017-06-28] MEDS ORDERED: LIDOCAINE HCL 2% VISC SOLN 20 ML UDC ONE (13:57)
[2017-06-28] MEDS ORDERED: ALUMINUM/MAGNESIUM SUSP 30 ML UDC ONE (13:57)
[2017-06-28 14:23] LABS: ISTAT CREATININE 0.7 mg/dl (0.6-1.3); ISTAT HEMOGLOBIN 11.9 g/dl (12.0-16.0); ISTAT IONIZED CALCIUM 1.21 mmol/l (1.12-1.32)
[2017-06-28 14:26] LABS: BASO % 0.6 %; BASO ABS # 0.06 K/uL (0-0.2); COMPLETE YES; EOS % 1.9 %; HEMATOCRIT 38.7 % (37-47); IG% 0.2 %; LYMPH % 27.3 %; MEAN CELL VOLUME 86.8 fL (80-100); MEAN CORPUSCULAR HEMOGLOBIN 29.8 pg (25-34); MEAN CORPUSCULAR HGB CONC 34.4 g/dl (32-36); MEAN PLATELET VOLUME 9.5 fL (7.4-10.4); MONO % 5.3 %; NEUT % 64.7 %; PLATELET COUNT 350 K/uL (130-400); RED BLOOD COUNT 4.46 M/uL (4.2-5.4); WHITE BLOOD COUNT 10.26 K/uL (4.8-10.8)
[2017-06-28 14:38] LABS: ALT/SGPT 19 U/L (12-78); AST/SGOT 12 U/L (15-37); BLOOD UREA NITROGEN 5 mg/dl (7-18); BUN/CREATININE RATIO 6.7 (10-20); CALCIUM 9.1 mg/dl (8.5-10.1); CARBON DIOXIDE 24 mmol/L (21-32); CHLORIDE 105 mmol/L (98-107); CREATININE 0.72 mg/dl (0.60-1.20); GLUCOSE 100 mg/dl (70-99); POTASSIUM 3.8 mmol/L (3.5-5.1); SODIUM 136 mmol/L (136-145)
--- NOTE | 2017-06-28 14:40 | DIAGNOSTIC IMAGING REPORT ---
ABD/PELVIS IV CONTRAST ONLY CLINICAL HISTORY: 51 years-old Female presenting with Pt c/o abd pain, recent cholecystectomy. TECHNIQUE: Multidetector CT of the abdomen and pelvis was performed after the administration of intravenous contrast. IV contrast: 93 mL of Optiray 320. A dose lowering technique was used consistent with the principles of ALARA (as low as reasonably achievable). COMPARISON: 05/29/2017. CT DOSE (mGy.cm): The estimated cumulative dose is 925.55 mGy.cm. FINDINGS: Manufacturing Associate topogram: Cholecystectomy clips. Lung bases: Mosaic attenuation at the lung bases could relate to the phase of respiration or indicate small airways disease. Minimal dependent atelectasis. Normal heart size. No pericardial or pleural effusion. Liver: Normal morphology. No liver lesion. Minimal infiltration in the gallbladder fossa likely expected postsurgical change. No sizable perihepatic or subcapsular fluid collection. Patent hepatic vasculature. Biliary: No intrahepatic or extrahepatic biliary ductal dilatation. Gallbladder surgically absent. Pancreas: Calcified focus in the pancreatic head/uncinate, unchanged from prior and indeterminate. In the absence of prior intervention, this may represent a peripherally calcified mucinous cystic lesion. No pancreatic ductal dilatation. This is unchanged from prior. Spleen: Normal. Adrenal glands: Normal. Kidneys and ureters: Normal. No hydronephrosis. Bladder: Normal. Pelvic organs: Uterus and ovaries normal for a premenopausal setting. The right ovary contains a dominant follicle. Bowel: Normal. No bowel obstruction. Peritoneal cavity: No free fluid or intraperitoneal gas. Lymph nodes: No enlarged lymph nodes in the abdomen or pelvis. Vasculature: Atherosclerosis of the normal caliber abdominal aorta. IVC patent. Abdominal wall: Postsurgical changes in the midline abdomen in the periumbilical region and right upper quadrant from recent cholecystectomy. Musculoskeletal: Normal. IMPRESSION: 1. Expected postsurgical appearance status post cholecystectomy. No convincing evidence of a biloma or other postsurgical complication. 2. Indeterminate peripherally calcified lesion in the pancreatic head/uncinate. This may represent a mucinous cystic lesion along other potential etiologies. Electronically signed by: Fernando Wylie M.D. 06/28/2017 2:38 PM Dictated Date/Time: 06/28/2017 2:29 PM
[2017-06-28 14:41] LABS: ALKALINE PHOSPHATASE 78 U/L (45-117)
[2017-06-28 15:20] LABS: URINE APPEARANCE CLEAR (CLEAR); URINE BILIRUBIN NEG (NEG); URINE COLOR YELLOW; URINE EPITHELIAL CELL AUTO >30 /lpf (0-5); URINE NITRITE NEG (NEG); URINE SPECIFIC GRAVITY 1.025 (1.000-1.030); UROBILINOGEN NEG (NEG)
[2017-06-28 15:23] LABS: MANUAL MICROSCOPIC REQUIRED? NO; REVIEW REQ? NO
[2017-06-28] MEDS ORDERED: ONDANSETRON INJ 2 MG/ML 2 ML VIAL IV STA (16:03)
[2017-06-28] MEDS ORDERED: HYDROmorphone INJ 1 MG/ML SYR IV STA (16:03)
[2017-06-28] MEDS ORDERED: NICOTINE 21 MG/24 HR TDSY TD STA (16:10)
[2017-06-28] MEDS ORDERED: DOCU-94 PO (16:15)
[2017-06-28] MEDS ORDERED: SENN1TAB77 PO (16:15)
[2017-06-28] MEDS ORDERED: NICO21DI35 TD (16:19)
[2017-06-28] MEDS ORDERED: OXYC-57 PO (16:19)
[2017-06-28] MEDS ORDERED: ONDA4TAB10 SL (16:23)
[2017-06-28 16:27] VITALS: BP 173/86; PULSE 66; O2SAT 97
--- NOTE | 2017-06-28 18:05 | Pharmacy Progress Note ---
ED Pharmacist Progress Note Date of Service: Jun 28, 2017. Patient called from [facility] stating "the antibiotic that was prescribed for her was not covered" by her insurance. Upon investigation it appears that a Rx for Pylera (Bismuth + TCN + Metronidazole) was called in by Dontae Monson. The treatment options for her are extremely limited for H pylori as she has multiple severe allergies (pcn's, cipro, and possibly metronidazole). Upon further discussion with the patient she opted to call Dontae's office in the AM to alert her to the issue and obtain a new Rx.
== END 2017-06-28 16:55 | disposition home or self-care (01) ==
LOC: C.EDB 12:33 → C.EDA 16:55
DX: R10.13 Epigastric pain (principal); Z90.49 Acquired absence of other specified parts of digestive tract; R11.2 Nausea with vomiting, unspecified; F17.200 Nicotine dependence, unspecified, uncomplicated; J45.909 Unspecified asthma, uncomplicated; Z87.442 Personal history of urinary calculi; Z86.19 Personal history of other infectious and parasitic diseases; Z83.3 Family history of diabetes mellitus

== ENCOUNTER 2017-09-29 14:12 | Emergency (ER) | payer OTHER ==
[~2017-09-29] VITALS: Ht 157.5 cm; Wt 97.0 kg
[~2017-09-29 14:12] MED LIST changes: +DOCU-94 PO; -LEVO1TAB33 PO; -METR-163 PO; +ONDA4TAB10 SL; -OXYC1TAB3 PO; -PANT40TA PO; +TRAZ100T29 PO
[2017-09-29 14:15] VITALS: TEMP 36.7; Ht 157.5 cm; Wt 97.0 kg
[2017-09-29 14:28] VITALS: O2SAT 99
[2017-09-29] MEDS ORDERED: TRAZ50TA35 PO (14:29)
[2017-09-29] MEDS ORDERED: CLX/40 PO (14:29)
[2017-09-29] MEDS ORDERED: ALPR-385 PO (14:29)
[2017-09-29] MEDS ORDERED: PROCHLORPERAZINE 5 MG/ML 2 ML VIAL IV STA (14:41)
[2017-09-29] MEDS ORDERED: DiphenhydrAMINE HCL 50 MG/ML VIAL IV STA (14:41)
--- NOTE | 2017-09-29 14:45 | EMERGENCY ROOM VISIT NOTE ---
History Report prepared by Sylwia: Francois Yepez Under the Supervision of: Dr. Tarun Jordan D.O. First contact with patient: 14:26 Chief Complaint: ILLNESS Stated Complaint: HEAD ACHE, DIZZY, PAIN BEHIND EYE AND BACK OF NECK History of Present Illness The patient is a 51 year old female who presents to the Emergency Room with complaints of a worsening headache that started 3 days ago. The patient states that she has had an intermittent headache for a while with sinusitis, but it really worsened over the past few days. She says that she is having pain running down the back of her neck. She states that for the past few days she has felt like her blood pressure was high. The patient notes that she used to be on Lisinopril, but was taken off of it 8 years ago. She says that she had doctor appointments at [facility] for a routine ultrasound, but her blood pressure was taken there and it was too high to undergo the ultrasound, and was instead sent to her family doctor in [place]. The patient notes that during the appointment at [facility], her face got red and she had blurry vision. She notes that her family doctor then sent the patient here for evaluation. 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 She says that she takes Suboxone and Trazodone daily. She says that she had a cholecystectomy in June. The patient notes that she has a medical history of asthma, acute pancreatitis, and fatty liver. She smokes a half a pack of cigarettes per day. The patient does not drink alcohol. Source of History: patient Onset: 3 days ago Position: head Symptom Intensity: going on for a while but really got bad past few days Quality: ache Timing: worsening Associated Symptoms: + neck pain Note: Associated symptoms: High blood pressure. Blurry vision. Review of Systems See HPI for pertinent positives & negatives. A total of 10 systems reviewed and were otherwise negative. Past Medical & Surgical Medical Problems: (1) Asthma (2) Helicobacter pylori (H. pylori) (3) Kidney stones Family History Cancer Diabetes mellitus Kidney disease Lung disease Social History Smoking Status: Current Every Day Smoker Alcohol Use: occasionally Drug Use: none Marital Status: in relationship Housing Status: lives with family Occupation Status: employed Current/Historical Medications Scheduled Alprazolam (Xanax), 1 MG PO HS Cefdinir (Omnicef), 300 MG PO Q12H Citalopram (Citalopram Hydrobromide), 40 MG PO QAM Esomeprazole Magnesium (Nexium), 40 MG PO QPM Trazodone Hcl (Trazodone), 50 MG PO HS Allergies Coded Allergies: Ciprofloxacin (Verified Allergy, Severe, ANAPHYLAXIS, 09/29/17) Iodinated Diagnostic Agents (Verified Allergy, Severe, HIVES-BLISTERS IN MOUTH, 09/29/17) Ketorolac Tromethamine (Unverified Allergy, Severe, HIVES,TONGUE SWELLING , 09/29/17) Morphine (Verified Allergy, Severe, ANAPHYLAXIS, 09/29/17) Naproxen (Verified Allergy, Severe, HIVES-BLISTERS IN MOUTH, 09/29/17) Penicillins (Verified Allergy, Severe, HIVES-BLISTERS IN MOUTH, 09/29/17) Sulfa Antibiotics (Verified Allergy, Severe, HIVES-BLISTERS IN MOUTH, 09/29) Sulfamethoxazole w/Trimethoprim (Verified Allergy, Severe, HIVES, 09/29/17) Tramadol (Unverified Allergy, Severe, HIVES,TONGUE SWELLING, 09/29/17) Physical Exam Vital Signs Date Time Temp Pulse Resp B/P (MAP) Pulse Ox O2 Delivery O2 Flow Rate FiO2 09/29/17 16:42 79 17 142/71 95 09/29/17 15:17 84 16 131/63 98 Room Air 09/29/17 14:38 83 18 134/78 100 Room Air 09/29/17 14:29 85 09/29/17 14:28 99 Room Air 09/29/17 14:15 36.7 86 18 151/86 97 Room Air Physical Exam GENERAL: Patient is awake, alert, and in no acute distress. Patient is resting comfortably and showing no signs of anxiety EYES: The conjunctivae are clear. The pupils are round and reactive. EARS, NOSE, MOUTH AND THROAT: The nose is without any evidence of any deformity. Mucous membranes are moist tongue is midline NECK: The neck is nontender and supple. RESPIRATORY: Normal respiratory effort is noted there is no evidence of wheezing rhonchi or rales CARDIOVASCULAR: Regular rate and rhythm noted there no murmurs rubs or gallops normal S1 normal S2 GASTROINTESTINAL: The abdomen is soft. Bowel sounds are present in all quadrants. Abdomen is nontender MUSCULOSKELETAL/EXTREMITIES: There is no evidence of gross deformity full range of motion is noted in the hips and shoulders SKIN: There is no obvious evidence of any rash. There are no petechiae, pallor or cyanosis noted. NEUROLOGIC: Patient is awake alert and oriented x3 strength is symmetric patellar reflexes are 2+ bilaterally Medical Decision & Procedures ER Provider Diagnostic Interpretation: Radiology results as stated below per my review and radiologist interpretation: CT OF THE HEAD WITHOUT CONTRAST CLINICAL HISTORY: Headache. Dizziness. COMPARISON STUDY: No previous studies for comparison. CT DOSE: 800.40 mGycm TECHNIQUE: Helical axial images of the head were obtained without IV contrast. Automated exposure control was utilized for the study. A dose lowering technique was utilized adhering to the principles of ALARA. FINDINGS: No acute intracranial hemorrhage, midline shift or mass effect is present. Ventricular system is normal. Basilar cisterns are patent. There are no extra-axial collections. There are scattered white matter hypodensities. There are no findings to suggest acute dural sinus thrombosis or acute territorial infarct. A large right maxillary sinus air-fluid level is noted. The anterior right ethmoid air cells are opacified. There are no significant calvarial abnormalities. Mastoid air cells are clear. IMPRESSION: 1. No acute intracranial findings. 2. Right maxillary sinus air-fluid level suggestive of acute sinusitis. Opacified anterior right ethmoid air cells. 3. Scattered white matter hypodensities which are nonspecific but statistically reflect small vessel disease. Electronically signed by: Donald Arriaza M.D. 09/29/2017 3:07 PM Dictated Date/Time: 09/29/2017 3:04 PM CHEST ONE VIEW PORTABLE HISTORY: Generalized abdominal pain. COMPARISON: Chest 05/29/2017. FINDINGS: Small linear density within the left midlung zone likely represents scarring. Stable bilateral hilar prominence. No new focal lung consolidations to suggest pneumonia. No evidence for pulmonary edema. No pleural effusions. No pneumothorax. The heart is normal in size. IMPRESSION: No significant change compared to the prior study. No acute process. Electronically signed by: Jeff Moctezuma M.D 09/29/2017 3:15 PM Dictated Date/Time: 09/29/2017 3:13 PM Laboratory Results 09/29/17 14:50 Red Blood Count 4.62, Mean Corpuscular Volume 85.3, Mean Corpuscular Hemoglobin 29.4, Mean Corpuscular Hemoglobin Concent 34.5, Mean Platelet Volume 9.0, Neutrophils (%) (Auto) 63.2, Lymphocytes (%) (Auto) 28.5, Monocytes (%) (Auto) 4.5, Eosinophils (%) (Auto) 2.9, Basophils (%) (Auto) 0.6, Neutrophils # (Auto) 6.56, Lymphocytes # (Auto) 2.96, Monocytes # (Auto) 0.47, Eosinophils # (Auto) 0.30, Basophils # (Auto) 0.06 09/29/17 14:50 Test 09/29/17 14:50 White Blood Count 10.38 K/uL (4.8-10.8) Red Blood Count 4.62 M/uL (4.2-5.4) Hemoglobin 13.6 g/dL (12.0-16.0) Hematocrit 39.4 % (37-47) Mean Corpuscular Volume 85.3 fL (80-100) Mean Corpuscular Hemoglobin 29.4 pg (25-34) Mean Corpuscular Hemoglobin Concent 34.5 g/dl (32-36) Platelet Count 323 K/uL (130-400) Mean Platelet Volume 9.0 fL (7.4-10.4) Neutrophils (%) (Auto) 63.2 % Lymphocytes (%) (Auto) 28.5 % Monocytes (%) (Auto) 4.5 % Eosinophils (%) (Auto) 2.9 % Basophils (%) (Auto) 0.6 % Neutrophils # (Auto) 6.56 K/uL (1.4-6.5) Lymphocytes # (Auto) 2.96 K/uL (1.2-3.4) Monocytes # (Auto) 0.47 K/uL (0.11-0.59) Eosinophils # (Auto) 0.30 K/uL (0-0.5) Basophils # (Auto) 0.06 K/uL (0-0.2) RDW Standard Deviation 43.6 fL (36.4-46.3) RDW Coefficient of Variation 14.0 % (11.5-14.5) Immature Granulocyte % (Auto) 0.3 % Immature Granulocyte # (Auto) 0.03 K/uL (0.00-0.02) Red Blood Cell Morphology Unremarkable Prothrombin Time 10.0 SECONDS (9.0-12.0) Prothromb Time International Ratio 1.0 (0.9-1.1) Activated Partial Thromboplast Time 25.0 SECONDS (21.0-31.0) Partial Thromboplastin Ratio 1.0 Anion Gap 8.0 mmol/L (3-11) Est Creatinine Clear Calc Drug Dose 71.6 ml/min Estimated GFR () 74.6 Estimated GFR (Non- 64.4 BUN/Creatinine Ratio 9.1 (10-20) Calcium Level 9.3 mg/dl (8.5-10.1) Total Bilirubin 0.3 mg/dl (0.2-1) Direct Bilirubin < 0.1 mg/dl (0-0.2) Aspartate Amino Transf (AST/SGOT) 12 U/L (15-37) Alanine Aminotransferase (ALT/SGPT) 19 U/L (12-78) Alkaline Phosphatase 95 U/L (45-117) Troponin I < 0.015 ng/ml (0-0.045) Total Protein 7.7 gm/dl (6.4-8.2) Albumin 3.3 gm/dl (3.4-5.0) Lipase 213 U/L (73-393) Laboratory results per my review. Medications Administered Medications (Trade) Dose Ordered Sig/Renetta Route Start Time Stop Time Status Last Admin Dose Admin Prochlorperazine Edisylate (Compazine Inj) 10 mg NOW STAT IV 09/29/17 14:41 09/29/17 14:43 DC 09/29/17 15:15 10 MG Diphenhydramine HCl (Benadryl Inj) 25 mg NOW STAT IV 09/29/17 14:41 09/29/17 14:43 DC 09/29/17 15:15 25 MG ECG Per My Interpretation Indication: other (dizzy) Rate (beats per minute): 80 Rhythm: normal sinus Findings: no ectopy, other (no acute ST segment abnormalities) Change: no significant change (from 05/29/17) ED Course 1433: The patient was evaluated in room A12B. A complete history and physical examination were performed. 1441: Benadryl Inj 25 mg IV, Compazine Inj 10 mg. 1530: Buffered Lidocaine 1% Inj 20 ml INFIL. 1618: Upon reevaluation, the patient refuses the LP. I discussed the results and treatment plan with her. She verbalized agreement of the treatment plan. She was discharged home. Medical Decision Differential diagnosis: Etiologies such as migraine headache, meningitis, sinusitis, CO exposure, ICH, SAH, infection, tumor, headache, sinus thrombosis, arterial dissection, as well as others were entertained. Nursing notes reviewed. The patient is a 51-year-old female who is sent to the emergency department by her primary care physician for headache. The patient was recently diagnosed with sinus infection but did not take the antibiotics. The patient did not have any focal neurologic deficit or meningismus. The patient was treated with IV Benadryl and IV Compazine. On subsequent reevaluation she was feeling much better. I discussed the patient's laboratory and radiographic studies with her. I also recommended that we do a lumbar puncture to rule out subarachnoid hemorrhage or meningitis. The patient did not wish to have a lumbar puncture. I discussed the reasons why she should have one. Ultimately the patient did not wish to have a lumbar puncture and would not consent for this procedure. She was encouraged to rest and avoid any strenuous activity. She was encouraged to continue the antibiotic and start taking Flonase. She was also encouraged to follow-up with her primary care physician for further evaluation but return to the emergency department immediately if symptoms change worsen or the need arises. Medication Reconcilliation Current Medication List: was personally reviewed by me Blood Pressure Screening Patient's blood pressure: Elevated blood pressure Blood pressure disposition: Elevated BP felt to be situational Impression Primary Impression: Headache Additional Impression: Sinusitis Scribe Attestation The scribe's documentation has been prepared under my direction and personally reviewed by me in its entirety. I confirm that the note above accurately reflects all work, treatment, procedures, and medical decision making performed by me. Departure Information Dispostion Home / Self-Care Prescriptions Cefdinir (OMNICEF) 300 Mg Cap 300 MG PO Q12H, #14 CAP Prov: Tarun Jordan, DO 09/29/17 Referrals No Doctor, Assigned (PCP) Forms HOME CARE DOCUMENTATION FORM, IMPORTANT VISIT INFORMATION, WORK / SCHOOL INSTRUCTIONS, Work Instructions Patient Instructions Headache Pain, My [facility], Sinusitis Acute Additional Instructions Continue all medications as prescribed. Continue using Motrin as directed for pain. Consider trying a nasal spray such as Flonase for decongestion. Be sure to start the antibiotic today. Return to the emergency department immediately symptoms change worsen or the need arises. Problem Qualifiers Primary Impression: Headache Headache type: unspecified Headache chronicity pattern: acute headache Intractability: not intractable Qualified Codes: R51 - Headache Additional Impression: Sinusitis Sinusitis location: unspecified location Chronicity: acute Recurrence: not specified as recurrent Qualified Codes: J01.90 - Acute sinusitis, unspecified
[2017-09-29 15:03] LABS: HEMATOCRIT 39.4 % (37-47); HEMOGLOBIN 13.6 g/dL (12.0-16.0); MEAN CELL VOLUME 85.3 fL (80-100); MEAN CORPUSCULAR HEMOGLOBIN 29.4 pg (25-34); MEAN CORPUSCULAR HGB CONC 34.5 g/dl (32-36); PLATELET COUNT 323 K/uL (130-400); RED CELL DISTRIBUTION WIDTH SD 43.6 fL (36.4-46.3); WHITE BLOOD COUNT 10.38 K/uL (4.8-10.8)
--- NOTE | 2017-09-29 15:09 | DIAGNOSTIC IMAGING REPORT ---
CT OF THE HEAD WITHOUT CONTRAST CLINICAL HISTORY: Headache. Dizziness. COMPARISON STUDY: No previous studies for comparison. CT DOSE: 800.40 mGycm TECHNIQUE: Helical axial images of the head were obtained without IV contrast. Automated exposure control was utilized for the study. A dose lowering technique was utilized adhering to the principles of ALARA. FINDINGS: No acute intracranial hemorrhage, midline shift or mass effect is present. Ventricular system is normal. Basilar cisterns are patent. There are no extra-axial collections. There are scattered white matter hypodensities. There are no findings to suggest acute dural sinus thrombosis or acute territorial infarct. A large right maxillary sinus air-fluid level is noted. The anterior right ethmoid air cells are opacified. There are no significant calvarial abnormalities. Mastoid air cells are clear. IMPRESSION: 1. No acute intracranial findings. 2. Right maxillary sinus air-fluid level suggestive of acute sinusitis. Opacified anterior right ethmoid air cells. 3. Scattered white matter hypodensities which are nonspecific but statistically reflect small vessel disease. Electronically signed by: Donald Arriaza M.D. 09/29/2017 3:07 PM Dictated Date/Time: 09/29/2017 3:04 PM
--- NOTE | 2017-09-29 15:16 | DIAGNOSTIC IMAGING REPORT ---
CHEST ONE VIEW PORTABLE HISTORY: Generalized abdominal pain. COMPARISON: Chest 05/29/2017. FINDINGS: Small linear density within the left midlung zone likely represents scarring. Stable bilateral hilar prominence. No new focal lung consolidations to suggest pneumonia. No evidence for pulmonary edema. No pleural effusions. No pneumothorax. The heart is normal in size. IMPRESSION: No significant change compared to the prior study. No acute process. Electronically signed by: Jeff Moctezuma M.D. 09/29/2017 3:15 PM Dictated Date/Time: 09/29/2017 3:13 PM
[2017-09-29 15:21] LABS: ALBUMIN 3.3 gm/dl (3.4-5.0); ALT/SGPT 19 U/L (12-78); AST/SGOT 12 U/L (15-37); BLOOD UREA NITROGEN 9 mg/dl (7-18); CALCIUM 9.3 mg/dl (8.5-10.1); CARBON DIOXIDE 25 mmol/L (21-32); CREATININE 1.01 mg/dl (0.60-1.20); GLUCOSE 168 mg/dl (70-99); LIPASE 213 U/L (73-393); POTASSIUM 3.5 mmol/L (3.5-5.1); SODIUM 138 mmol/L (136-145)
[2017-09-29 15:25] LABS: BASO % 0.6 %; BASO ABS # 0.06 K/uL (0-0.2); EOS % 2.9 %; IG# 0.03 K/uL (0.00-0.02); LYMPH % 28.5 %; LYMPH ABS # 2.96 K/uL (1.2-3.4); MONO % 4.5 %; MONO ABS # 0.47 K/uL (0.11-0.59); NEUT % 63.2 %; NEUT ABS # 6.56 K/uL (1.4-6.5)
[2017-09-29 15:26] LABS: ALKALINE PHOSPHATASE 95 U/L (45-117); TOTAL PROTEIN 7.7 gm/dl (6.4-8.2)
[2017-09-29] MEDS ORDERED: XYLOCAINE 1%/SOD BICARB 20 ML VIAL INFIL ONE (15:30)
[2017-09-29] MEDS ORDERED: AMOX875T PO (16:19)
[2017-09-29] MEDS ORDERED: CEFD300C2 PO (16:32)
[2017-09-29 16:42] VITALS: BP 142/71; PULSE 79; O2SAT 95
== END 2017-09-29 16:44 | disposition home or self-care (01) ==
LOC: C.EDB 14:15 → C.EDA 16:44
DX: R51 Headache (principal); J01.90 Acute sinusitis, unspecified; J45.909 Unspecified asthma, uncomplicated; K29.90 Gastroduodenitis, unspecified, without bleeding; Z83.3 Family history of diabetes mellitus; F17.200 Nicotine dependence, unspecified, uncomplicated; Z88.8 Allergy status to other drugs, medicaments and biological substances; Z88.0 Allergy status to penicillin